=== PATIENT | male | born 1960 | race Two or more races ===

== ENCOUNTER → 2021-01-31 | Outpatient (CLI) | payer OTHER ==
--- NOTE | 2021-01-31 15:40 | RAD ---
MRI BRAIN WO Date: 01/31/2021 11:37 AM Indication: MEMORY LOSS, CHRONIC HEADACHES, LABILE MOOD Comparison: None. Technique: Multiplanar multisequence MRI of the brain was performed without intravenous contrast usin g the standard protocol. Findings: No acute infarct. No acute or chronic hemorrhage. The ventricles are normal in size and configuration without hydrocephalus. The scalp and calvarium are normal. The pituitary and sella are normal. No Chiari malformation. The v isualized upper cervical spine is normal. The visualized orbits and globes are normal. The visualized paranasal sinuses are clear. The mastoid air cells are clear. Normal flow voids within the vertebral, basilar, and internal carotid arteries indicating patency. IMPRESSION: No acute intracranial process. Electronically signed by: Sherman Izaguirre MD (01/31/2021 3:38 PM) [id number]
== END ==
LOC: MRI 11:10
PROVIDERS: ATTEND Family Medicine
DX: R41.3 Other amnesia (principal); R51.9 Headache, unspecified; R45.86 Emotional lability
CPT/HCPCS: 70551